=== PATIENT | female | born 1975 ===

== ENCOUNTER 2017-05-07 18:41 | Emergency (ER) | payer OTHER ==
[2017-05-07 18:59] VITALS: BP 148/98; PULSE 102; RESP 18; TEMP 97.9; O2SAT 95
--- NOTE | 2017-05-07 20:05 | ED PDOC ---
Lower Extremity Pain/Injury Time Seen by Provider: 05/07/17 19:02 Chief Complaint (Nursing): Lower Extremity Problem/Injury Chief Complaint (Provider): Left Buttock Pain History Per: Patient History/Exam Limitations: no limitations Onset/Duration Of Symptoms: Days Current Symptoms Are (Timing): Still Present Pain Scale Rating Of: 8 Additional Complaint(s): 41 year old female presenting to the ED complaining of left buttock pain radiating down her left leg. The patient reports that she was seen at urgent care and prescribed toradol but it did not offer much help. She described the pain as a deep burning sensation and states that she has to change positions to find relief. Denies injury, calf pain, history of back pain/injury. PMD: Non [facility] Provider, Past Medical History Reviewed: Historical Data, Nursing Documentation, Vital Signs Vital Signs: Last Vital Signs Temp 97.9 F 05/07/17 18:54 Pulse 102 H 05/07/17 18:54 Resp 18 05/07/17 18:54 BP 148/98 H 05/07/17 18:54 Pulse Ox 95 05/07/17 18:54 - Medical History PMH: Back Problems - Surgical History Surgical History: No Surg Hx - Family History Family History: States: Unknown Family Hx - Immunization History Hx Tetanus Toxoid Vaccination: No Hx Influenza Vaccination: No Hx Pneumococcal Vaccination: No - Home Medications Home Medications: Ambulatory Orders Medication Instructions Recorded Tramadol HCl [Ultram] 50 mg PO Q6 #15 tab 05/07/17 - Allergies Allergies/Adverse Reactions: Allergies Allergy/AdvReac Type Severity Reaction Status Date / Time No Known Allergies Allergy Verified 05/07/17 18:53 Review of Systems ROS Statement: Except As Marked, All Systems Reviewed And Found Negative Musculoskeletal: Positive for: Other (left buttock pain radiating to left leg) Physical Exam - Reviewed Nursing Documentation Reviewed: Yes Vital Signs Reviewed: Yes - Physical Exam Appears: Positive for: Non-toxic, No Acute Distress Head Exam: Positive for: NORMAL INSPECTION Skin: Positive for: Normal Color, Warm, Dry. Negative for: Rash Eye Exam: Positive for: Normal appearance, EOMI, PERRL. Negative for: Nystagmus Neck: Positive for: Normal, Painless ROM, Supple Cardiovascular/Chest: Positive for: Regular Rate, Rhythm, Chest Non Tender. Negative for: Tachycardia Respiratory: Positive for: Normal Breath Sounds. Negative for: Wheezing, Respiratory Distress Back: Positive for: Normal Inspection, Other ((-) straight legt raise; (-) C- spine; (-)L-spine). Negative for: L CVA Tenderness, R CVA Tenderness Extremity: Positive for: Normal ROM (Full ROM of the hi[). Negative for: Tenderness, Deformity, Swelling Neurologic/Psych: Positive for: Alert, Oriented. Negative for: Motor/Sensory Deficits, Gait - ECG O2 Sat by Pulse Oximetry: 95 (RA) Pulse Ox Interpretation: Normal Medical Decision Making Medical Decision Makin Initial Impression 41 y/o female presenting with left buttock pain Initial Plan: * Reevaluation Documented by Maryanne Schultz acting as a scribe for Vanessa Pugh PA-C. All medical record entries made by the Scribe were at my direction and personally dictated by me. I have reviewed the chart and agree that the record accurately reflects my personal performance of the history, physical exam, medical decision making, and the department course for this patient. I have also personally directed, reviewed, and agree with the discharge instructions and disposition. Disposition - Clinical Impression Clinical Impression: Radicular neuropathy - Patient ED Disposition Is Patient to be Admitted: No - Disposition Referrals: [facility] [Outside] [facility] [Outside] [facility] [Outside] Disposition: Routine/Home Disposition Time: 17:32 Condition: STABLE Prescriptions: Tramadol HCl [Ultram] 50 mg PO Q6 #15 tab Instructions: Lumbar Radiculopathy (ED) Forms: [employer] (Yi)
== END 2017-05-07 20:02 | disposition home or self-care (01) ==
LOC: H.ER 18:41
DX: G62.9 Polyneuropathy, unspecified (principal)